=== PATIENT | female | born 1955 | race Caucasian/White ===

== ENCOUNTER 2023-08-07 09:48 | Day surgery (SDC) | payer OTHER ==
[2023-08-04 10:31] VITALS: BMI 27.3
[2023-08-07 10:28] VITALS: RESP 18; TEMP 97.8
[2023-08-07 11:56] VITALS: BP 135/78; PULSE 64
== END 2023-08-07 12:00 | disposition home or self-care (01) ==
LOC: FASU-ENDO 09:48
PROVIDERS: ATTEND Internal Medicine Gastroenterology
PROC: 3E0H8KZ Introduction of Other Diagnostic Substance into Lower GI, Via Natural or Artificial Opening Endoscopic (ICD-10-PCS; 2023-08-07)
PROC: 0DBN8ZX Excision of Sigmoid Colon, Via Natural or Artificial Opening Endoscopic, Diagnostic (ICD-10-PCS; principal; 2023-08-07 11:04)
DX: Z12.11 Encounter for screening for malignant neoplasm of colon (principal); C18.7 Malignant neoplasm of sigmoid colon; K62.5 Hemorrhage of anus and rectum; Z86.010 Personal history of colon polyps
CPT/HCPCS: 88305-TC